=== PATIENT | male | born 1990 | race Caucasian/White ===

== ENCOUNTER 2020-11-25 02:20 | Emergency (ER) | payer MEDICARE ==
[~2020-11-25 02:20] MED LIST: ERYTHROMYCIN O3.5 GM OU; FLEXERIL 10 MG10 MG PO; IBUPROFEN800 MG PO; INDOCIN 50 MG C50 MG PO; NAPROSYN500 MG PO; NORCO 5-325 TA1 EACH PO
[2020-11-25] MEDS ORDERED: PERCOCET 5/325 T1 EA PO (02:53)
== END 2020-11-25 03:10 | disposition home or self-care (01) ==
LOC: ER1 02:20
DX: M27.8 Other specified diseases of jaws (principal); K08.89 Other specified disorders of teeth and supporting structures
CPT/HCPCS: 64400; 99282